=== PATIENT | male | born 1980 | race Hispanic/Latino ===

== ENCOUNTER 2017-12-06 20:51 | Emergency (ER) | payer BC ==
[2017-12-06 20:58] VITALS: BMI 25.4
[2017-12-06] MEDS ORDERED: PROPARACAINE/FLUORESCEIN SOD 100 DROP/5 ML BOTTLE OS STA (21:31)
--- NOTE | 2017-12-06 21:31 | ED PDOC ---
HPI: Eye Injury/Pain Time Seen by Provider: 12/06/17 21:01 Chief Complaint (Nursing): Eye Problem Chief Complaint (Provider): Eye injury/pain History Per: Patient History/Exam Limitations: no limitations Onset/Duration Of Symptoms: Mins ([employer]) Current Symptoms Are (Timing): Still Present Associated Symptoms: Pain, Swelling Additional Complaint(s): 37 year old male presents to the ED complaining of left eye injury [employer]. Patient reports he was playing basketball when he was hit in the left eye. He states having pain, swelling, blurry vision, and ecchymosis in left orbital area and a headache but denies nausea, vomiting, and LOC. PMD: Yarelis Oseguera Past Medical History Reviewed: Historical Data, Nursing Documentation, Vital Signs Vital Signs: Last Vital Signs Temp 98.2 F 12/06/17 20:57 Pulse 64 12/06/17 20:57 Resp 16 12/06/17 20:57 BP 125/100 H 12/06/17 20:57 Pulse Ox 99 12/06/17 20:57 - Medical History PMH: No Chronic Diseases - Surgical History Surgical History: No Surg Hx - Family History Family History: States: Unknown Family Hx - Immunization History Hx Tetanus Toxoid Vaccination: No - Allergies Allergies/Adverse Reactions: Allergies Allergy/AdvReac Type Severity Reaction Status Date / Time No Known Allergies Allergy Verified 12/06/17 20:57 Review of Systems ROS Statement: Except As Marked, All Systems Reviewed And Found Negative Eyes: Positive for: Pain, Other (blurry vision, ecchymosis, and swelling of left orbital area) Gastrointestinal: Negative for: Nausea, Vomiting Neurological: Positive for: Headache. Negative for: Other (LOC) Physical Exam - Reviewed Nursing Documentation Reviewed: Yes Vital Signs Reviewed: Yes - Physical Exam Appears: Positive for: Non-toxic, No Acute Distress Head Exam: Positive for: ATRAUMATIC, NORMOCEPHALIC Skin: Positive for: Normal Color, Warm, Dry Neck: Positive for: Normal, Painless ROM Cardiovascular/Chest: Negative for: Bradycardia, Tachycardia Respiratory: Negative for: Respiratory Distress Extremity: Positive for: Normal ROM Neurologic/Psych: Positive for: Alert, Oriented. Negative for: Motor/Sensory Deficits - ECG O2 Sat by Pulse Oximetry: 99 (RA) Pulse Ox Interpretation: Normal Medical Decision Making Medical Decision Making: Initial Impression: Left eye injury Initial Plan: CT Head Fluorescein 1 drop OS Scribe Attestation: Documented by Bijan Cardoza acting as a scribe for Asuncion LANDA. Provider Scribe Attestation: All medical record entries made by the Scribe were at my direction and personally dictated by me. I have reviewed the chart and agree that the record accurately reflects my personal performance of the history, physical exam, medical decision making, and the department course for this patient. I have also personally directed, reviewed, and agree with the discharge instructions and disposition. Disposition - Clinical Impression Clinical Impression: Head injury, Facial contusion, Subconjunctival hemorrhage of left eye - Patient ED Disposition Is Patient to be Admitted: No Counseled Patient/Family Regarding: Diagnosis, Need For Followup - Disposition Disposition: Routine/Home Disposition Time: 22:38 Condition: GOOD Instructions: Closed Head Injury, Subconjunctival Hemorrhage Forms: [facility] ([place] Citizen)
[2017-12-06 22:49] VITALS: BP 138/81; PULSE 75; RESP 15; TEMP 98.7; O2SAT 100
--- NOTE | 2017-12-07 08:26 | CT ---
Date of service: 12/06/2017 PROCEDURE: CT HEAD WITHOUT CONTRAST. HISTORY: facial injury, headache COMPARISON: None available. TECHNIQUE: Axial computed tomography images were obtained through the head/brain without intravenous contrast. Radiation dose: Total exam DLP = 864.85 mGy-cm. This CT exam was performed using one or more of the following dose reduction techniques: Automated exposure control, adjustment of the mA and/or kV according to patient size, and/or use of iterative reconstruction technique. FINDINGS: HEMORRHAGE: No intracranial hemorrhage. BRAIN: Gottlieb-white matter differentiation is preserved. There is no mass, mass effect or abnormal extra-axial fluid collection. There is no territorial infarction. The midline sagittal structures are normal. VENTRICLES: The ventricles are normal in size, shape and configuration. CALVARIUM: There is no calvarial fracture or extracranial soft tissue swelling. PARANASAL SINUSES: Predominantly clear. MASTOID AIR CELLS: Predominantly clear. OTHER FINDINGS: None. IMPRESSION: No acute intracranial abnormality. A preliminary report was provided by [facility].
== END 2017-12-06 22:48 | disposition home or self-care (01) ==
LOC: H.ER 20:51
DX: S09.90XA Unspecified injury of head, initial encounter (principal); S00.83XA Contusion of other part of head, initial encounter; H11.32 Conjunctival hemorrhage, left eye